=== PATIENT | male | born 1975 | race American Indian/Alaskan Native ===

== ENCOUNTER 2016-10-07 19:20 | Inpatient (IN) | payer SELFPAY ==
[2016-10-07 20:38] LABS: Basophils % (Auto) 0.3 % (0.0-1.8); Hematocrit 43.8 % (35.5-45.6); Hemoglobin 15.1 gm/dl (11.8-15.2); Mean Corpuscular HGB Conc 34 % (32-34); Mean Corpuscular Hemoglobin 30 pg (28-32); Mean Corpuscular Volume 87 fl (84-94); Platelet Count 231 K/mm3 (140-440); Red Blood Count 5.05 M/mm3 (3.65-5.03); Red Cell Distribution Width 12.5 % (13.2-15.2); White Blood Count 10.9 K/mm3 (4.5-11.0)
[2016-10-07 20:58] LABS: Alanine Aminotransferase 25 units/L (7-56); Albumin 4.9 g/dL (3.9-5); Albumin/Globulin Ratio 1.4 %; Alkaline Phosphatase 164 units/L (35-129); Anion Gap 18 mmol/L; Bilirubin,Total 0.2 mg/dL (0.1-1.2); Blood Urea Nitrogen 15 mg/dL (9-20); Calcium 9.6 mg/dL (8.4-10.2); Carbon Dioxide 27 mmol/L (22-30); Chloride 97.2 mmol/L (98-107); Glucose 104 mg/dL (75-100); Potassium 4.5 mmol/L (3.6-5.0); Sodium 138 mmol/L (137-145); Total Protein 8.3 g/dL (6.3-8.2)
[2016-10-07 21:12] LABS: Lipase 1041 units/L (13-60)
[2016-10-07 22:20] LABS: Bilirubin,Urine NEG (Negative); Blood,Urine NEG (Negative); Ketones,Urine NEG (Negative); Leukocyte Esterase,Urine NEG (Negative); Mucus,Urine FEW /HPF; Nitrite,Urine NEG (Negative); Protein,Urine <15 mg/dL mg/dL (Negative); Urobilinogen,Urine < 2.0 mg/dL (<2.0)
[2016-10-07] MEDS ORDERED: NACL 0.9% 1000 ML 1,000 ML IV ONE (23:40)
[2016-10-07] MEDS ORDERED: DILAUDID IV ONE (23:40)
[2016-10-07] MEDS ORDERED: PEPCID IV ONE (23:40)
[2016-10-07] MEDS ORDERED: ZOFRAN IV ONE (23:41)
--- NOTE | 2016-10-07 23:51 | Emergency Department Report ---
ED Abdominal Pain HPI - General Chief Complaint: Abdominal Pain Stated Complaint: ABD PAIN Time Seen by Provider: 10/07/16 23:19 Source: patient, old records reviewed Mode of arrival: Ambulatory Limitations: No Limitations - History of Present Illness Initial Comments: 41-year-old male with a past medical history of alcohol abuse and pancreatitis presents to the hospital complaining of upper abdominal pain that radiates to the back for the past 5 days. Pain is constant, rated 8/10 in intensity, worse palpation. No alleviating factors reported. Positive vomiting, nausea, and diarrhea reported. Patient states he has had pancreatitis in the past secondary to alcohol use. He admits to recent alcohol use over the last 5 days prior to symptom onset. No reports of fever. - Related Data Previous Rx's Medication Instructions Recorded Last Taken Type HYDROcodone/APAP 7.5-325 [[place] 1 each PO Q8HR PRN #10 tablet 05/15/16 Unknown Rx 7.5-325 mg TAB] Ibuprofen [Motrin] 800 mg PO Q8HR PRN #14 tablet 05/15/16 Unknown Rx Allergies Allergy/AdvReac Type Severity Reaction Status Date / Time No Known Allergies Allergy Verified 01/29/15 13:22 ED Review of Systems ROS: Stated complaint: ABD PAIN Other details as noted in HPI Comment: All other systems reviewed and negative Other: Constitutional: No fevers chills Eyes: No eye pain visual changes ENT: No ear pain or throat pain Neck: Denies pain Respiratory: Denies cough wheezing shortness of breath Cardiovascular: Denies chest pain, palpitations, syncope GI: As per HPI : Denies dysuria Musculoskeletal: Denies back pain, joint swelling Skin: Denies rash, lesions, erythema Neurologic: Denies headache, numbness, weakness Psychiatric: Denies suicidal ideation, hallucinations ED Past Medical Hx - Past Medical History Previous Medical History?: Yes Additional medical history: pancreatitis - Surgical History Past Surgical History?: No - Social History Smoking Status: Never Smoker Substance Use Type: None - Medications Home Medications: Home Medications Medication Instructions Recorded Confirmed Last Taken Type HYDROcodone/APAP 7.5-325 [[place] 1 each PO Q8HR PRN #10 tablet 05/15/16 Unknown Rx 7.5-325 mg TAB] Ibuprofen [Motrin] 800 mg PO Q8HR PRN #14 tablet 05/15/16 Unknown Rx ED Physical Exam - General Limitations: No Limitations - Other Other exam information: General: No limitations, patient is alert in no acute distress Head exam: Atraumatic, normocephalic Eyes exam: Normal appearance, pupils equal reactive to light, extraocular movements intact ENT: Moist mucous membrane, normal oropharynx Neck exam: Normal inspection, full range of motion, no meningismus nontender Respiratory exam: Clear to auscultation bilateral, no wheezes, rales, crackles Cardiovascular: Normal rate and rhythm, normal heart sounds Abdomen: Soft, nondistended, epigastric tenderness, with normal bowel sounds, no rebound, or guarding Extremity: Full range of motion normal inspection no deformity Back: Normal Inspection, full range of motion, no tenderness Neurologic: Alert, oriented x3, cranial nerves intact, no motor or sensory deficit Psychiatric: normal affect, normal mood Skin: Warm, dry, intact ED Course Vital Signs 10/07/16 19:58 Temperature 98.0 F Pulse Rate 72 Respiratory 20 Rate Blood Pressure 146/107 O2 Sat by Pulse 99 Oximetry - Reevaluation(s) Reevaluation #1: 10/07/16 23:50 Dilaudid, Zofran, Pepcid, and normal saline ordered 10/07/16 23:50 ED Medical Decision Making - Lab Data Result diagrams: 10/07/16 20:21 10/07/16 20:21 Lab Results 10/07/16 10/07/16 10/07/16 Range/Units 20:21 20:21 21:45 WBC 10.9 (4.5-11.0) K/mm3 RBC 5.05 H (3.65-5.03) M/mm3 Hgb 15.1 (11.8-15.2) gm/dl Hct 43.8 (35.5-45.6) % MCV 87 (84-94) fl MCH 30 (28-32) pg MCHC 34 (32-34) % RDW 12.5 L (13.2-15.2) % Plt Count 231 (140-440) K/mm3 Lymph % (Auto) 31.5 (13.4-35.0) % [place] % (Auto) 6.4 (0.0-7.3) % Eos % (Auto) 2.0 (0.0-4.3) % Baso % (Auto) 0.3 (0.0-1.8) % Lymph # 3.4 (1.2-5.4) K/mm3 [place] # 0.7 (0.0-0.8) K/mm3 Eos # 0.2 (0.0-0.4) K/mm3 Baso # 0.0 (0.0-0.1) K/mm3 Seg Neutrophils % 59.8 (40.0-70.0) % Seg Neutrophils # 6.5 (1.8-7.7) K/mm3 Sodium 138 (137-145) mmol/L Potassium 4.5 (3.6-5.0) mmol/L Chloride 97.2 L (98-107) mmol/L Carbon Dioxide 27 (22-30) mmol/L Anion Gap 18 mmol/L BUN 15 (9-20) mg/dL Creatinine 1.0 (0.8-1.5) mg/dL Estimated GFR > 60 ml/min BUN/Creatinine Ratio 15.00 % Glucose 104 H (75-100) mg/dL Calcium 9.6 (8.4-10.2) mg/dL Total Bilirubin 0.2 (0.1-1.2) mg/dL AST 26 (5-40) units/L ALT 25 (7-56) units/L Alkaline Phosphatase 164 H (35-129) units/L Total Protein 8.3 H (6.3-8.2) g/dL Albumin 4.9 (3.9-5) g/dL Albumin/Globulin Ratio 1.4 % Lipase 1041 H (13-60) units/L Urine Color Yellow (Yellow) Urine Turbidity Clear (Clear) Urine pH 5.0 (5.0-7.0) Ur Specific [place] 1.016 (1.003-1.030) Urine Protein <15 mg/dl (Negative) mg/dL Urine Glucose (UA) Neg (Negative) mg/dL Urine Ketones Neg (Negative) mg/dL Urine Blood Neg (Negative) Urine Nitrite Neg (Negative) Urine Bilirubin Neg (Negative) Urine Urobilinogen < 2.0 (<2.0) mg/dL Ur Leukocyte Esterase Neg (Negative) Urine WBC (Auto) 2.0 (0.0-6.0) /HPF Urine RBC (Auto) 1.0 (0.0-6.0) /HPF U Epithel Cells (Auto) < 1.0 (0-13.0) /HPF Urine Mucus Few /HPF - Medical Decision Making Plans to admit patient to the hospital for treatment of acute pancreatitis likely alcohol induced. - Differential Diagnosis pancreatitis, biliary colic, hepatitis, gastritis Critical Care Time: No Critical care attestation.: If time is entered above; I have spent that time in minutes in the direct care of this critically ill patient, excluding procedure time. ED Disposition Clinical Impression: Pancreatitis, alcoholic, acute Disposition: OP ADMITTED IP TO THIS HOSP Is pt being admited?: Yes Condition: Stable Time of Disposition: 23:53 (Dr marcelino/hosp)
[2016-10-08] MEDS ORDERED: TYLENOL PO PRN (05:40)
[2016-10-08] MEDS ORDERED: ZOFRAN IV PRN (05:40)
[2016-10-08] MEDS ORDERED: DULCOLAX PR PRN (05:40)
[2016-10-08] MEDS ORDERED: MILK OF MAGNESIA PO PRN (05:40)
--- NOTE | 2016-10-08 05:53 | Event Note ---
Date: 10/07/16 See H/p in reports Acute pancreatitis Etoh dependence
[2016-10-08] MEDS ORDERED: ATIVAN IV PRN ×3 (05:59)
[2016-10-08] MEDS ORDERED: HALDOL IV PRN ×2 (05:59)
[2016-10-08] MEDS: DILAUDID IV PRN ×4 (06:05→22:25)
[2016-10-08] MEDS: D5NS 1,000 ML IV SCH ×2 (06:05→17:09)
--- NOTE | 2016-10-08 07:29 | History and Physical Report ---
CHIEF COMPLAINT: Severe epigastric pain of 5 days duration. HISTORY OF PRESENT ILLNESS: A 41-year-old -[place] male comes in for severe abdominal pain of 5 days duration, moreso over the last of 36 hours. Pain is about 10 on a scale of 1-10. Associated with nausea and vomiting. Vomited about three to four times. Also, he states he has diarrhea. He is not able to elaborate on that. 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 Apparently took three views prior to this episode of epigastric pain. No fever, no chills. Unable to tolerate any food. CURRENT MEDICATIONS: None. PAST MEDICAL HISTORY: He has history of pain, which is 10 on a scale of 10, very sharp. Localized epigastric region radiating to the back. Significant for pancreatitis. PAST SURGICAL HISTORY: None. SOCIAL HISTORY: Alcohol on a regular basis for 3-6 years. Does not smoke. No drugs. HOME MEDICATIONS: [place] 7.5 q.8 p.r.n. #10 tablets and ibuprofen 800 mg q.8 p.r.n. #14 tablets given on 05/15/2016. Not on any medication at this point. REVIEW OF SYSTEMS: CONSTITUTIONAL: No fever, no weight loss, no weight gain. HEENT: No sore throat, no postnasal drip. NECK: No neck stiffness or neck pain. RESPIRATORY: No wheezing, no cough, no shortness of breath. CARDIOVASCULAR: No chest pain, no diaphoresis, no palpitations. GASTROINTESTINAL: As mentioned in the history of present illness. Severe epigastric pain associated with nausea, vomiting, and diarrhea. Vomiting about 3-4 times a day. MUSCULOSKELETAL: No joint pains, no muscle pains. CENTRAL NERVOUS SYSTEM: No syncope, no seizures. SKIN: No rashes. PSYCHIATRIC: No depression. No suicidal or homicidal tendencies. A 14-point review of systems done, otherwise negative. FAMILY HISTORY: Significant for no hypertension, no diabetes. PHYSICAL EXAMINATION: GENERAL: On examination, young male in the distress secondary to abdominal pain. VITAL SIGNS: Blood pressure is 146/107, temperature is 98.0, pulse is 72, respirations are 20, sats are 99%. HEENT: Unremarkable. Pupils equal and reactive. NECK: Supple, no lymphadenopathy, no thyromegaly. LUNGS: Clear to auscultation and percussion. Good air entry. CARDIOVASCULAR: S1, S2 heard. No gallop, no murmur, no rub. Apical impulse in the left fifth intercostal space and midclavicular line. ABDOMEN: Tenderness present in the epigastric region. Guarding present. No rigidity. Bowel sounds are normal. Hernial orifices are normal. EXTREMITIES: Good pedal pulses. No pedal edema. CENTRAL NERVOUS SYSTEM: Alert and oriented x4, nonfocal exam. SKIN: Normal. LABORATORY DATA: White count is 10,900, H and H is 15.1 and 43.8, platelet count is 231,000. Sodium 138, potassium is 4.5, chloride is 97.2, bicarbonate is 27, BUN and creatinine is 15 and 1.0. Glucose is 104, calcium 9.6, AST, ALT 26 and 25, alkaline phosphatase is 154, total protein is 8.3. Lipase is 1041. Amylase is not available. Urine negative. CAT scan of the abdomen was not done. ASSESSMENT AND PLAN: 1. Acute pancreatitis based on severe epigastric pain, nausea, vomiting, and also lipase is around 1000. We will get amylase and CT abdomen and pelvis with noncontrast. IV Dilaudid 2 mg q.3 p.r.n. and IV Zofran 4 mg q.3 p.r.n. Keep the patient n.p.o., IV D5 normal saline at 100 mL per hour. 2. Ethyl alcohol dependency, CIWA protocol initiated. 3. Deep venous thrombosis prophylaxis, Lovenox 40 mg subcutaneous daily. JOB# [id number] VSM/NTS
[2016-10-08 08:16] LABS: Amylase 200 units/L (27-131)
[2016-10-08 08:44] LABS: Lipase 509 units/L (13-60)
[2016-10-08] MEDS ORDERED: LOVENOX SUB-Q SCH ×2 (10:00→22:00)
[2016-10-08 10:22] LABS: Albumin 4.3 g/dL (3.9-5); Phosphorous 3.9 mg/dL (2.5-4.5)
[2016-10-08 10:23] LABS: Alanine Aminotransferase 20 units/L (7-56); Albumin 4.4 g/dL (3.9-5); Albumin/Globulin Ratio 1.5 %; Alkaline Phosphatase 145 units/L (35-129); Anion Gap 19 mmol/L; Bilirubin,Total 0.6 mg/dL (0.1-1.2); Blood Urea Nitrogen 10 mg/dL (9-20); Calcium 9.1 mg/dL (8.4-10.2); Carbon Dioxide 23 mmol/L (22-30); Glucose 125 mg/dL (75-100); Potassium 3.9 mmol/L (3.6-5.0); Sodium 141 mmol/L (137-145); Total Protein 7.4 g/dL (6.3-8.2)
[2016-10-08] MEDS ORDERED: NACL ONE (10:30)
[2016-10-08] MEDS: PEPCID IV SCH ×2 (11:13→22:25)
--- NOTE | 2016-10-08 12:46 | Cat Scan Report ---
CT scan of abdomen and pelvis with IV contrast: Compared to 01/11/16. History: Pancreatitis. Findings: Normal lung bases. No pleural pericardial effusion. Normal liver, spleen and gallbladder. There is multiple calcifications noted throughout the pancreas including the head. Largest is seen at the head. Dilated pancreatic duct without significant change. Minimal stranding near the tail of the pancreas. Normal adrenals kidneys and bladder. No free intraperitoneal fluid or air. No evidence of adenopathy. Normal aorta. Grossly bowel gas pattern appears normal there is minimal blood in stool in colon. Small umbilical hernia containing fat. Impression: Chronic stable pancreatitis. Minimal stranding near the tail of the pancreas may represent associated acute pancreatitis.
--- NOTE | 2016-10-09 00:25 | Admit Criteria Form ---
Admission Criteria Documentation: PANCREATITIS Clinical Indications for Admission to Inpatient Care (Place 'X' for any and all applicable criteria): Admission is indicated for ANY ONE of the following (1)(2)(3)(4): [ X]I. Acute pancreatitis[A] as indicated by 2 or more of the following: [ X]a) Abdominal pain (eg, epigastric, left upper quadrant) [ X]b) Serum amylase or serum lipase greater than 3 times the upper limit of normal [ ]c) Characteristic findings from abdominal imaging (eg, pancreatic inflammation, pancreatic necrosis, peripancreatic fluid collection)[B] [ ]II. Pancreatitis (acute or chronic) requiring inpatient care as indicated by 1 or more of the following: [ ]a) Inability to maintain oral hydration Hypoxemia [ ]b) Evidence of infection (eg, fever, peripancreatic abscess) [ ]c) Severe pain requiring acute inpatient management [ ]d) Hemodynamic instability [ ]e) Hypoxemia [ ]f) Acute renal failure [ ]g) Severe electrolyte abnormalities Extended stay beyond goal length of stay may be needed for (1)(11) [ ]a) Severe acute pancreatitis (10)(19) [ ]b) Persistent symptoms, ascites, or pleural effusion [ ]c) Abdominal compartment syndrome (10) [ ]d) Late complications [ ]e) Acute renal failure (27) [ ]f) Gallstones in gallbladder The original [employer] content created by [employer] has been revised. The portions of the content which have been revised are identified through the use of italic text or in bold,and [facility] has neither reviewed nor approved the modified material.All other unmodified content is copyright [employer]. Please see references footnoted in the original [employer] edition 2016 Admission Criteria Met: Yes
[2016-10-09] MEDS: BENADRYL PO PRN ×2 (01:10→11:45)
[2016-10-09] MEDS: DILAUDID IV PRN ×2 (06:40→11:44)
[2016-10-09] MEDS: D5NS 1,000 ML IV SCH (06:48)
[2016-10-09 07:19] LABS: Basophils % (Auto) 0.3 % (0.0-1.8); Hemoglobin 13.7 gm/dl (11.8-15.2); Mean Corpuscular HGB Conc 34 % (32-34); Mean Corpuscular Hemoglobin 31 pg (28-32); Mean Corpuscular Volume 89 fl (84-94); Platelet Count 218 K/mm3 (140-440); Red Blood Count 4.51 M/mm3 (3.65-5.03); Red Cell Distribution Width 12.8 % (13.2-15.2); White Blood Count 9.5 K/mm3 (4.5-11.0)
[2016-10-09 08:02] LABS: Alanine Aminotransferase 16 units/L (7-56); Albumin 4.2 g/dL (3.9-5); Albumin/Globulin Ratio 1.4 %; Alkaline Phosphatase 122 units/L (35-129); Anion Gap 18 mmol/L; BUN/Creatinine Ratio 6.36; Bilirubin,Total 0.8 mg/dL (0.1-1.2); Blood Urea Nitrogen 7 mg/dL (9-20); Calcium 9.1 mg/dL (8.4-10.2); Carbon Dioxide 25 mmol/L (22-30); Chloride 101.5 mmol/L (98-107); Glucose 92 mg/dL (75-100); Potassium 3.7 mmol/L (3.6-5.0); Sodium 141 mmol/L (137-145); Total Protein 7.3 g/dL (6.3-8.2)
[2016-10-09] MEDS: PEPCID IV SCH ×2 (08:11→12:04)
[2016-10-09 09:20] VITALS: BP 116/78
--- NOTE | 2016-10-09 14:13 | Discharge Summary ---
Providers - Providers Date of Admission: 10/07/16 23:54 Attending physician: EVANS WILKES Primary care physician: RINKU ENAMORADO MD Hospitalization Condition: Stable Exam - Constitutional Vitals: Temp Pulse Resp BP Pulse Ox 98.1 F 76 18 116/78 98 10/09/16 08:00 10/09/16 08:00 10/09/16 08:00 10/09/16 08:00 10/09/16 08:00 Plan Follow up with: RINKU ENAMORADO MD [Primary Care Provider] - 7 Days
== END 2016-10-09 16:20 | disposition home or self-care (01) | DRG 440 ==
LOC: ED 19:20 → 3A 23:54
PROVIDERS: ADMIT Internal Medicine; ATTEND Internal Medicine
DX: K85.20 Alcohol induced acute pancreatitis without necrosis or infection (principal); F10.20 Alcohol dependence, uncomplicated; Y90.9 Presence of alcohol in blood, level not specified
CPT/HCPCS: 36415; 74160; 80053; 81001; 82040; 82150; 83690; 83735; 84100; 85025; 96361; 96374; 96375; J1170; J1650; J2060; J2405; J7030; J7042; Q9967

== ENCOUNTER 2017-01-01 05:51 | Emergency (ER) | payer OTHER ==
[2017-01-01 06:36] LABS: Basophils % (Auto) 0.4 % (0.0-1.8); Hematocrit 40.4 % (35.5-45.6); Hemoglobin 13.7 gm/dl (11.8-15.2); Mean Corpuscular HGB Conc 34 % (32-34); Mean Corpuscular Hemoglobin 30 pg (28-32); Mean Corpuscular Volume 87 fl (84-94); Platelet Count 250 K/mm3 (140-440); Red Blood Count 4.65 M/mm3 (3.65-5.03); Red Cell Distribution Width 12.9 % (13.2-15.2); White Blood Count 6.7 K/mm3 (4.5-11.0)
[2017-01-01 06:46] LABS: INR 0.97 (0.87-1.13)
[2017-01-01 06:47] LABS: Partial Thromboplastin Time 25.4 Sec. (24.2-36.6)
[2017-01-01 06:57] LABS: Alanine Aminotransferase 20 units/L (7-56); Albumin 4.5 g/dL (3.9-5); Albumin/Globulin Ratio 1.5 %; Alkaline Phosphatase 154 units/L (35-129); Anion Gap 19 mmol/L; Blood Urea Nitrogen 11 mg/dL (9-20); Calcium 9.5 mg/dL (8.4-10.2); Carbon Dioxide 22 mmol/L (22-30); Chloride 105.5 mmol/L (98-107); Glucose 93 mg/dL (75-100); Lipase 19 units/L (13-60); Potassium 3.5 mmol/L (3.6-5.0); Sodium 143 mmol/L (137-145); Total Protein 7.5 g/dL (6.3-8.2)
[2017-01-01 07:40] LABS: Bilirubin,Urine NEG (Negative); Blood,Urine NEG (Negative); Ketones,Urine NEG (Negative); Leukocyte Esterase,Urine TR (Negative); Mucus,Urine FEW /HPF; Nitrite,Urine NEG (Negative); Protein,Urine <15 mg/dL mg/dL (Negative); Urobilinogen,Urine < 2.0 mg/dL (<2.0)
[2017-01-01] MEDS ORDERED: ZOFRAN IV ONE (13:16)
[2017-01-01] MEDS ORDERED: MORPHINE IV ONE (13:16)
[2017-01-01] MEDS ORDERED: NACL 0.9% 1000 ML 1,000 ML IV ONE (13:17)
--- NOTE | 2017-01-01 15:02 | Emergency Department Report ---
HPI - General Chief Complaint: Abdominal Pain Time Seen by Provider: 01/01/17 12:38 - HPI HPI: The patient is a 41-year-old male presents for evaluation of abdominal pain. The patient reports epigastric abdominal pain, for the past 24 hours, not/10 in severity, sharp in quality, exacerbated with eating. The patient denies fever, force or vomiting, chest pain, dyspnea, diarrhea, blood in the stool, dark tarry stool, dysuria, hematuria, flank pain, genital discharge, inability to pass flatus. ED Past Medical Hx - Past Medical History Previous Medical History?: Yes Hx Hypertension: No Hx Congestive Heart Failure: No Hx Diabetes: No Hx Arthritis: Yes (Grand mother) Hx Asthma: No Hx COPD: No Additional medical history: pancreatitis - Surgical History Past Surgical History?: No - Social History Smoking Status: Never Smoker Substance Use Type: None - Medications Home Medications: Home Medications Medication Instructions Recorded Confirmed Last Taken Type Ibuprofen [Motrin] 800 mg PO Q8HR PRN #14 tablet 05/15/16 10/08/16 Unknown Rx Folic Acid [Folvite] 1 mg PO QDAY #30 tablet 10/09/16 Unknown Rx Multivitamin Tab [Multiple Vitamin 1 each PO QDAY #30 tablet 10/09/16 Unknown Rx TAB (Theragran)] Thiamine [Vitamin B-1] 100 mg PO QDAY #30 tablet 10/09/16 Unknown Rx Ondansetron [Zofran TAB] 4 mg PO Q8HR PRN #15 tablet 01/01/17 Unknown Rx ED Review of Systems ROS: Stated complaint: UPPER ABD PAIN/LIGHT HEADED Other details as noted in HPI Constitutional: denies: fever ENT: denies: throat or neck pain Respiratory: denies: cough, shortness of breath Cardiovascular: denies: chest pain Endocrine: denies unexplained weight loss or gain Gastrointestinal: reports abdominal pain, nausea Genitourinary: denies: dysuria Musculoskeletal: denies: leg swelling Skin: denies: rash Neurological: denies: headache Hematological/Lymphatic: denies: easy bleeding or easy bruising Psych: denies sadness or hopelessness Physical Exam - Physical Exam Vital Signs: Vital Signs 01/01/17 01/01/17 01/01/17 05:59 11:49 11:50 Temperature 97.9 F Pulse Rate 87 Respiratory 18 Rate Blood Pressure 134/90 Blood Pressure 139/105 [Right] O2 Sat by Pulse 97 99 99 Oximetry 01/01/17 01/01/17 01/01/17 12:00 12:31 13:01 Temperature Pulse Rate Respiratory Rate Blood Pressure 140/91 140/91 140/91 Blood Pressure [Right] O2 Sat by Pulse 99 98 99 Oximetry 01/01/17 01/01/17 13:07 13:40 Temperature Pulse Rate Respiratory 18 18 Rate Blood Pressure Blood Pressure [Right] O2 Sat by Pulse 99 Oximetry Physical Exam: General: well-nourished, well-developed, no acute distress Head: Normocephalic, atraumatic Eyes: normal sclera ENT: Mucous membranes are pale and dry Neck: No neck stiffness, no cervical adenopathy Respiratory: Breath sounds equal bilaterally, no wheezing, rales, or rhonchi Cardio: S1 and S2 present, no murmurs, rubs, gallops, capillary refill is delayed Abdomen: Normoactive bowel sounds, soft abdomen, epigastric tenderness to palpation present, no rigidity, no guarding or rebound tenderness Musc: No pitting edema Skin: No rash Neuro: no facial drooping, normal speech Psych: Normal affect ED Course Vital Signs 01/01/17 01/01/17 01/01/17 05:59 11:49 11:50 Temperature 97.9 F Pulse Rate 87 Respiratory 18 Rate Blood Pressure 134/90 Blood Pressure 139/105 [Right] O2 Sat by Pulse 97 99 99 Oximetry 01/01/17 01/01/17 01/01/17 12:00 12:31 13:01 Temperature Pulse Rate Respiratory Rate Blood Pressure 140/91 140/91 140/91 Blood Pressure [Right] O2 Sat by Pulse 99 98 99 Oximetry 01/01/17 01/01/17 13:07 13:40 Temperature Pulse Rate Respiratory 18 18 Rate Blood Pressure Blood Pressure [Right] O2 Sat by Pulse 99 Oximetry ED Medical Decision Making - Lab Data Result diagrams: 01/01/17 06:18 01/01/17 06:18 - Medical Decision Making The patient was seen and examined by myself. The patient is placed on a conveyor monitor and continuous pulse ox. On initial evaluation, the patient was found to be in no distress. Evaluation orders are placed. IV access is established and the patient is given 1 L normal saline fluid bolus for txt of dehydration, and Zofran for nausea, and IV morphine for pain. Lab results were non-concerning including WBC, hemoglobin, hematocrit, electrolytes, renal function, LFTs, lipase, and urinalysis. The patient was reevaluated and reported that their symptoms were markedly improved. The patient is stable for discharge with outpatient follow-up. The patient is given follow-up and return instructions. The patient expressed understanding and agreed with the plan. The patient is discharged in stable condition. Critical care attestation.: If time is entered above; I have spent that time in minutes in the direct care of this critically ill patient, excluding procedure time. ED Disposition Clinical Impression: Dehydration, Abdominal pain, acute, epigastric Disposition: DISCHARGED TO HOME OR SELFCARE Is pt being admited?: No Does the pt Need Aspirin: No Condition: Stable Instructions: Dehydration (ED), Acute Abdominal Pain (ED), Peptic Ulcer (ED), Gastritis (ED), Pancreatitis (ED) Prescriptions: Ondansetron [Zofran TAB] 4 mg PO Q8HR PRN #15 tablet PRN Reason: Nausea Referrals: PRIMARY CARE, [Primary Care Provider] - 3-5 Days Time of Disposition: 14:58
[2017-01-01 15:20] VITALS: BP 142/81
== END 2017-01-01 15:51 | disposition home or self-care (01) ==
LOC: ED 05:51
DX: E86.0 Dehydration (principal); R10.13 Epigastric pain; M19.90 Unspecified osteoarthritis, unspecified site; K85.90 Acute pancreatitis without necrosis or infection, unspecified
CPT/HCPCS: 36415; 80053; 81001; 83690; 84484; 85025; 85610; 85730; 93005; 93010; 96361; 96374; 96375; 99284; J2270; J2405; J7030

== ENCOUNTER 2017-11-14 09:19 | Emergency (ER) | payer SELFPAY ==
[2017-11-14 09:29] VITALS: BP 134/96
[2017-11-14 09:51] LABS: Basophils % (Auto) 0.4 % (0.0-1.8); Eosinophils # (Auto) 0.3 K/mm3 (0.0-0.4); Eosinophils % (Auto) 3.5 % (0.0-4.3); Hemoglobin 14.9 gm/dl (11.8-15.2); Lymphocytes # (Auto) 3.8 K/mm3 (1.2-5.4); Mean Corpuscular HGB Conc 35 % (32-34); Mean Corpuscular Hemoglobin 31 pg (28-32); Mean Corpuscular Volume 89 fl (84-94); Monocytes # (Auto) 0.6 K/mm3 (0.0-0.8); Monocytes % (Auto) 7.7 % (0.0-7.3); Platelet Count 258 K/mm3 (140-440); Red Blood Count 4.83 M/mm3 (3.65-5.03); Red Cell Distribution Width 13.3 % (13.2-15.2)
[2017-11-14 10:05] LABS: Alanine Aminotransferase 17 units/L (7-56); Albumin 4.8 g/dL (3.9-5); BUN/Creatinine Ratio 11; Blood Urea Nitrogen 12 mg/dL (9-20); Calcium 9.7 mg/dL (8.4-10.2); Hemolysis Index 17
[2017-11-14 10:17] LABS: Bilirubin,Direct < 0.2 mg/dL (0-0.2)
[2017-11-14 10:41] LABS: Bilirubin,Urine NEG (Negative); Blood,Urine NEG (Negative); Color,Urine Yellow (Yellow); Mucus,Urine FEW /HPF; Protein,Urine <15 mg/dL mg/dL (Negative); Urobilinogen,Urine < 2.0 mg/dL (<2.0)
--- NOTE | 2017-11-14 13:10 | Emergency Department Report ---
ED Abdominal Pain HPI - General Chief Complaint: Abdominal Pain Stated Complaint: CANT URINATE Time Seen by Provider: 11/14/17 12:50 Source: patient Mode of arrival: Ambulatory Limitations: No Limitations - History of Present Illness Initial Comments: Patient is here for abdominal pain that has been hurting for 4 days/ He reported that he vomited twice yesterday. He reports that he has urinary urgency and will take up to 30 mins to void. He denies any hematuria, fever, any dysuria. No past medical, no current meds and no know drug allergies. MD Complaint: abdominal pain -: month(s) (1) Location: suprapubic - Related Data Previous Rx's Medication Instructions Recorded Last Taken Type Ibuprofen [Motrin] 800 mg PO Q8HR PRN #14 tablet 05/15/16 Unknown Rx Folic Acid [Folvite] 1 mg PO QDAY #30 tablet 10/09/16 Unknown Rx Multivitamin Tab [Multiple Vitamin 1 each PO QDAY #30 tablet 10/09/16 Unknown Rx TAB (Theragran)] Thiamine [Vitamin B-1] 100 mg PO QDAY #30 tablet 10/09/16 Unknown Rx Ondansetron [Zofran TAB] 4 mg PO Q8HR PRN #15 tablet 01/01/17 Unknown Rx Tamsulosin [Flomax] 0.4 mg PO QDAY #30 cap 11/14/17 Unknown Rx traMADol [Ultram 50 MG tab] 50 mg PO Q6HR PRN #20 tablet 11/14/17 Unknown Rx Allergies Allergy/AdvReac Type Severity Reaction Status Date / Time No Known Allergies Allergy Verified 01/29/15 13:22 ED Review of Systems ROS: Stated complaint: CANT URINATE Other details as noted in HPI Constitutional: denies: chills, fever Eyes: denies: eye pain, eye discharge, vision change ENT: denies: ear pain, throat pain Respiratory: denies: cough, shortness of breath, wheezing Cardiovascular: denies: chest pain, palpitations Endocrine: no symptoms reported Gastrointestinal: abdominal pain. denies: nausea, diarrhea Genitourinary: urgency. denies: dysuria Musculoskeletal: denies: back pain, joint swelling, arthralgia Skin: denies: rash, lesions Neurological: denies: headache, weakness, paresthesias Psychiatric: denies: anxiety, depression Hematological/Lymphatic: denies: easy bleeding, easy bruising ED Past Medical Hx - Past Medical History Hx Hypertension: No Hx Congestive Heart Failure: No Hx Diabetes: No Hx Arthritis: Yes (Grand mother) Hx Asthma: No Hx COPD: No Additional medical history: pancreatitis - Social History Smoking Status: Never Smoker Substance Use Type: None - Medications Home Medications: Home Medications Medication Instructions Recorded Confirmed Last Taken Type Ibuprofen [Motrin] 800 mg PO Q8HR PRN #14 tablet 05/15/16 10/08/16 Unknown Rx Folic Acid [Folvite] 1 mg PO QDAY #30 tablet 10/09/16 Unknown Rx Multivitamin Tab [Multiple Vitamin 1 each PO QDAY #30 tablet 10/09/16 Unknown Rx TAB (Theragran)] Thiamine [Vitamin B-1] 100 mg PO QDAY #30 tablet 10/09/16 Unknown Rx Ondansetron [Zofran TAB] 4 mg PO Q8HR PRN #15 tablet 01/01/17 Unknown Rx Tamsulosin [Flomax] 0.4 mg PO QDAY #30 cap 11/14/17 Unknown Rx traMADol [Ultram 50 MG tab] 50 mg PO Q6HR PRN #20 tablet 11/14/17 Unknown Rx ED Physical Exam - General Limitations: No Limitations General appearance: alert, in no apparent distress - Head Head exam: Present: atraumatic, normocephalic - Eye Eye exam: Present: normal appearance - ENT ENT exam: Present: mucous membranes moist - Neck Neck exam: Present: normal inspection - Respiratory Respiratory exam: Present: normal lung sounds bilaterally. Absent: respiratory distress - Cardiovascular Cardiovascular Exam: Present: regular rate, normal rhythm. Absent: systolic murmur, diastolic murmur, rubs, gallop - GI/Abdominal GI/Abdominal exam: Present: soft, tenderness ( suprapubic), normal bowel sounds - Rectal Rectal exam: Present: deferred - Extremities Exam Extremities exam: Present: normal inspection - Back Exam Back exam: Present: normal inspection - Neurological Exam Neurological exam: Present: alert, oriented X3 - Psychiatric Psychiatric exam: Present: normal affect, normal mood - Skin Skin exam: Present: warm, dry, intact, normal color. Absent: rash ED Course Vital Signs 11/14/17 09:25 Temperature 98.0 F Pulse Rate 89 Respiratory 16 Rate Blood Pressure 134/96 O2 Sat by Pulse 99 Oximetry ED Medical Decision Making - Lab Data Result diagrams: 11/14/17 09:36 11/14/17 09:36 - Medical Decision Making Patient has been evaluated by this provider and Dr. Duagherty. Discuss with patient that his urine is normal and no elevation of his WBCs in his blood. recommend Flomax and tramadol and referral to urology. Critical care attestation.: If time is entered above; I have spent that time in minutes in the direct care of this critically ill patient, excluding procedure time. ED Disposition Clinical Impression: Abdominal pain in male Disposition: DC-01 TO HOME OR SELFCARE Is pt being admited?: No Does the pt Need Aspirin: No Condition: Stable Instructions: Abdominal Pain (ED) Additional Instructions: Take medication as prescribed. Follow up with a urologist and PCP. Prescriptions: Tamsulosin [Flomax] 0.4 mg PO QDAY #30 cap traMADol [Ultram 50 MG tab] 50 mg PO Q6HR PRN #20 tablet PRN Reason: Pain Referrals: PRIMARY CARE, [Primary Care Provider] - 3-5 Days GRZEGORZ UNGER MD [Staff Physician] - 3-5 Days JACKELIN RADFORD MD [Referring] - 3-5 Days SANTA SEPULVEDA MD [Referring] - 3-5 Days Forms: Work/School Release Form(ED)
--- NOTE | 2017-11-14 14:13 | Emergency Department Report ---
Chief Complaint: Abdominal Pain Stated Complaint: CANT URINATE Time Seen by Provider: 11/14/17 12:50 - HPI History of Present Illness: The patient is a 42-year-old male who presents for evaluation of abdominal pain. The patient reports upper abdominal pain and suprapubic abdominal pain for the past 2 months, associated with intermittent dysuria and difficulty urinating. The patient denies fever, chills, night sweats, diarrhea, blood in the stool, dark tarry stool, hematuria, testicular pain or swelling, flank pain , genital discharge, rectal pain, inability to defecate. - Exam Vital Signs: Vital Signs 11/14/17 09:25 Temperature 98.0 F Pulse Rate 89 Respiratory 16 Rate Blood Pressure 134/96 O2 Sat by Pulse 99 Oximetry MSE screening note: Focused history and physical exam performed. Due to findings the following was ordered: ED Medical Decision Making - Lab Data Result diagrams: 11/14/17 09:36 11/14/17 09:36 ED Disposition for MSE Clinical Impression: Abdominal pain in male Disposition: DC-01 TO HOME OR SELFCARE Condition: Stable Instructions: Abdominal Pain (ED) Additional Instructions: Take medication as prescribed. Follow up with a urologist and PCP. Prescriptions: Tamsulosin [Flomax] 0.4 mg PO QDAY #30 cap traMADol [Ultram 50 MG tab] 50 mg PO Q6HR PRN #20 tablet PRN Reason: Pain Referrals: GRZEGORZ UNGER MD [Staff Physician] - 3-5 Days [facility], [Primary Care Provider] - 3-5 Days SANTA SEPULVEDA MD [Referring] - 3-5 Days JACKELIN RADFORD MD [Referring] - 3-5 Days Forms: Work/School Release Form(ED)
== END 2017-11-14 13:25 | disposition home or self-care (01) ==
LOC: ED 09:19
DX: R10.30 Lower abdominal pain, unspecified (principal); R39.15 Urgency of urination; R11.10 Vomiting, unspecified
CPT/HCPCS: 36415; 80053; 80074; 81001; 85025; 99283

== ENCOUNTER 2018-02-18 22:23 | Emergency (ER) | payer SELFPAY ==
[2018-02-18 22:46] VITALS: BP 147/103
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
[2018-02-19] MEDS ORDERED: TORADOL IM ONE (00:52)
== END 2018-02-19 01:10 | disposition home or self-care (01) ==
LOC: ED 22:23
DX: M43.6 Torticollis (principal); M54.9 Dorsalgia, unspecified; M19.90 Unspecified osteoarthritis, unspecified site; W22.8XXA Striking against or struck by other objects, initial encounter; Y93.89 Activity, other specified; Y99.8 Other external cause status; Y92.89 Other specified places as the place of occurrence of the external cause
CPT/HCPCS: 96372; 99282; J1885

== ENCOUNTER 2018-06-25 12:03 | Emergency (ER) | payer SELFPAY ==
[2018-06-25] MEDS ORDERED: LIDOCAINE VISCOUS 2% PO ONE (13:38)
[2018-06-25] MEDS ORDERED: PEPCID PO ONE (13:38)
[2018-06-25] MEDS ORDERED: ZOFRAN ODT PO ONE (13:38)
[2018-06-25] MEDS ORDERED: ALUM-MAG HYDROX-SIMETH 200-200-20MG/5ML PO ONE (13:38)
--- NOTE | 2018-06-25 13:38 | Emergency Department Report ---
ED Abdominal Pain HPI - General Chief Complaint: Abdominal Pain Stated Complaint: N/V,SIDE PAIN Time Seen by Provider: 06/25/18 13:37 Source: patient Mode of arrival: Ambulatory Limitations: No Limitations - History of Present Illness MD Complaint: abdominal pain -: Gradual, days(s) Location: diffuse, LUQ Migration to: no migration Severity: mild Quality: cramping Consistency: constant Improves With: nothing Worsens With: nothing Associated Symptoms: denies other symptoms. denies: nausea, vomiting, diarrhea , fever, chills, constipation, dysuria, hematemesis, hematochezia, melena, hematuria, anorexia, syncope - Related Data Previous Rx's Medication Instructions Recorded Last Taken Type Famotidine [Pepcid] 20 mg PO BID #20 tablet 06/25/18 Unknown Rx Ondansetron [Zofran Odt] 4 mg PO Q6H PRN #10 tab.rapdis 06/25/18 Unknown Rx Allergies Allergy/AdvReac Type Severity Reaction Status Date / Time No Known Allergies Allergy Verified 06/25/18 12:19 ED Review of Systems ROS: Stated complaint: N/V,SIDE PAIN Other details as noted in HPI Comment: All other systems reviewed and negative Constitutional: denies: chills, fever Eyes: denies: eye pain ENT: denies: throat pain Respiratory: denies: cough Cardiovascular: denies: palpitations Endocrine: denies: excessive sweating Gastrointestinal: abdominal pain, nausea. denies: vomiting, diarrhea, constipation, hematemesis, melena Genitourinary: denies: urgency, dysuria Musculoskeletal: denies: back pain Skin: denies: rash, lesions Neurological: denies: headache, weakness Psychiatric: denies: anxiety, depression Hematological/Lymphatic: denies: easy bleeding ED Past Medical Hx - Past Medical History Hx Hypertension: No Hx Congestive Heart Failure: No Hx Diabetes: No Hx Arthritis: Yes (Grand mother) Hx Asthma: No Hx COPD: No Additional medical history: pancreatitis - Surgical History Past Surgical History?: No - Family History Family history: no significant - Social History Smoking Status: Never Smoker Substance Use Type: Alcohol - Medications Home Medications: Home Medications Medication Instructions Recorded Confirmed Last Taken Type Famotidine [Pepcid] 20 mg PO BID #20 tablet 06/25/18 Unknown Rx Ondansetron [Zofran Odt] 4 mg PO Q6H PRN #10 tab.rapdis 06/25/18 Unknown Rx ED Physical Exam - General Limitations: No Limitations General appearance: alert - Head Head exam: Present: atraumatic - Eye Eye exam: Present: normal appearance Pupils: Present: normal accommodation - ENT ENT exam: Present: normal exam, mucous membranes moist - Neck Neck exam: Present: normal inspection - Respiratory Respiratory exam: Present: normal lung sounds bilaterally - Cardiovascular Cardiovascular Exam: Present: regular rate - GI/Abdominal GI/Abdominal exam: Present: soft, normal bowel sounds. Absent: distended, tenderness, guarding, rebound, rigid, diminished bowel sounds, hyperactive bowel sounds, hypoactive bowel sounds, organomegaly, mass, bruit, pulsatile mass , hernia - Rectal Rectal exam: Present: deferred - Extremities Exam Extremities exam: Present: normal inspection - Back Exam Back exam: Present: normal inspection, full ROM. Absent: tenderness, CVA tenderness (R), CVA tenderness (L), muscle spasm - Neurological Exam Neurological exam: Present: alert, oriented X3, CN II-XII intact, normal gait, reflexes normal - Psychiatric Psychiatric exam: Present: normal affect, normal mood - Skin Skin exam: Present: warm, dry ED Course Vital Signs 06/25/18 06/25/18 06/25/18 12:19 17:24 17:28 Temperature 98.4 F 98.0 F 98.0 F Pulse Rate 78 78 Respiratory 16 18 18 Rate Blood Pressure 137/100 Blood Pressure 167/101 167/101 [Right] O2 Sat by Pulse 97 98 98 Oximetry ED Medical Decision Making - Lab Data Result diagrams: 06/25/18 13:31 06/25/18 13:31 - Medical Decision Making Presents to the ER today with diffuse abdominal pain. He states that he was at his friend's last night and they ate food. He said it was a green party he doesn't have anybody else was sick. He has pain such as when he had an the past with his pancreatitis. LABS N URINE N AMBULATORY TAKING PO NON TOXIC NO FEVER - Differential Diagnosis RO PANCREATITIS Critical care attestation.: If time is entered above; I have spent that time in minutes in the direct care of this critically ill patient, excluding procedure time. ED Disposition Clinical Impression: Abdominal pain, History of pancreatitis Disposition: - TO HOME OR SELFCARE Is pt being admited?: No Does the pt Need Aspirin: No Condition: Stable Instructions: Acute Nausea and Vomiting (ED), Abdominal Pain (ED) Additional Instructions: HYDRATE WELL WITH WATER MEDS ORDERED BLAND DIET BANANA RICE APPLESAUCE TOAST FOLLOW UP WITH GI MD SEE REFERRAL BELOW AVOID ALCOHOL AVOID SPICY FOOD AVOID OTHER THINGS THAT YOU KNOW UPSET YOUR STOMACH Prescriptions: Famotidine [Pepcid] 20 mg PO BID #20 tablet Ondansetron [Zofran Odt] 4 mg PO Q6H PRN #10 tab.rapdis PRN Reason: Nausea Referrals: LILLIAM BURNS MD [Staff Physician] - 3-5 Days PAKO MEI MD [Staff Physician] - 3-5 Days AAKASH HUTTON MD [Staff Physician] - 3-5 Days Time of Disposition: 16:58
[2018-06-25 13:50] LABS: Basophils # (Auto) 0.1 K/mm3 (0.0-0.1); Basophils % (Auto) 0.9 % (0.0-1.8); Eosinophils # (Auto) 0.7 K/mm3 (0.0-0.4); Eosinophils % (Auto) 8.8 % (0.0-4.3); Hematocrit 39.7 % (35.5-45.6); Hemoglobin 13.9 gm/dl (11.8-15.2); Lymphocytes # (Auto) 2.7 K/mm3 (1.2-5.4); Mean Corpuscular HGB Conc 35 % (32-34); Mean Corpuscular Hemoglobin 31 pg (28-32); Mean Corpuscular Volume 89 fl (84-94); Monocytes # (Auto) 0.5 K/mm3 (0.0-0.8); Monocytes % (Auto) 7.2 % (0.0-7.3); Platelet Count 231 K/mm3 (140-440); Red Blood Count 4.45 M/mm3 (3.65-5.03); Red Cell Distribution Width 13.1 % (13.2-15.2)
[2018-06-25 14:08] LABS: Albumin 4.8 g/dL (3.9-5); BUN/Creatinine Ratio 14; Blood Urea Nitrogen 18 mg/dL (9-20); Calcium 9.6 mg/dL (8.4-10.2); Hemolysis Index 118; Lipase 15 units/L (13-60)
[2018-06-25 14:21] LABS: Alanine Aminotransferase 33 units/L (7-56)
[2018-06-25 14:51] LABS: Bilirubin,Urine NEG (Negative); Blood,Urine NEG (Negative); Color,Urine Yellow (Yellow); Protein,Urine <15 mg/dL mg/dL (Negative); Urobilinogen,Urine < 2.0 mg/dL (<2.0)
[2018-06-25 17:29] VITALS: BP 167/101
== END 2018-06-25 17:29 | disposition home or self-care (01) ==
LOC: ED 12:03
DX: K85.90 Acute pancreatitis without necrosis or infection, unspecified (principal); M19.90 Unspecified osteoarthritis, unspecified site
CPT/HCPCS: 36415; 80053; 81001; 83690; 85025; 99283; Q0162

== ENCOUNTER 2019-02-10 11:53 | Emergency (ER) | payer OTHER ==
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
[2019-02-10 12:01] VITALS: BP 151/95
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
--- NOTE | 2019-02-10 12:46 | XRay Report ---
PROCEDURE: XR SHOULDER 2+V LT TECHNIQUE: Left shoulder radiographs, 3 views. HISTORY: left shoulder pain COMPARISONS: None currently available. FINDINGS: There is no acute fracture. There is no evidence for healing fracture. There is no acute dislocation. No significant arthrosis. There is no cortical destruction to suggest osteomyelitis. There are no suspicious osseous lesions. There are no radiopaque foreign objects. IMPRESSION: * No acute osseous findings. This document is electronically signed by Jimi Regalado MD., February 10 2019 12:44:30 PM ET
== END 2019-02-10 13:09 | disposition home or self-care (01) ==
LOC: ED 11:53
DX: M25.512 Pain in left shoulder (principal); R03.0 Elevated blood-pressure reading, without diagnosis of hypertension; M19.90 Unspecified osteoarthritis, unspecified site; V49.49XA Driver injured in collision with other motor vehicles in traffic accident, initial encounter; Y93.89 Activity, other specified; Y92.89 Other specified places as the place of occurrence of the external cause; Y99.8 Other external cause status

== ENCOUNTER 2020-07-10 11:37 | Emergency (ER) | payer OTHER ==
[2020-07-10 12:13] VITALS: BP 138/94
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
== END 2020-07-10 15:16 | disposition home or self-care (01) ==
LOC: ED 11:37
DX: M25.512 Pain in left shoulder (principal); M54.2 Cervicalgia; M19.91 Primary osteoarthritis, unspecified site; Z79.1 Long term (current) use of non-steroidal anti-inflammatories (NSAID); Z79.899 Other long term (current) drug therapy; V49.49XA Driver injured in collision with other motor vehicles in traffic accident, initial encounter; Y93.89 Activity, other specified; Y92.410 Unspecified street and highway as the place of occurrence of the external cause; Y99.8 Other external cause status

== ENCOUNTER 2020-12-09 15:15 | Emergency (ER) | payer OTHER ==
[2020-12-09] MEDS ORDERED: ACETAMINOPHEN 500 MG TAB PO ONE ×2 (16:04→19:48)
--- NOTE | 2020-12-09 16:07 | Event Note ---
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 Patient states that his current symptoms are consistent with prior diagnosis of acute pancreatitis, at which time he was hospitalized. No known sick contacts. Cannot recall date of last normal bowel movement. Fever and tachycardia noted in triage; ordered Tylenol and lactic acid per sepsis protocol. General: Awake, appropriately interactive, no acute distress. Neck: Supple. Full range of motion intact. Cardiovascular: Normal peripheral perfusion. Pulmonary: No respiratory distress. Patient is speaking normally without use of accessory muscles. Abdomen: Soft, non-distended. Diffuse tenderness to palpation most pronounced along the epigastrium/left upper quadrant. No guarding, rigidity, or rebound. Skin: No apparent rashes or lesions. Neurological: No facial asymmetry. Speech is clear. Follows commands. Patient is alert and oriented. Musculoskeletal: Moves all four extremities spontaneously with normal range of motion. Psych: Cooperative. Appropriate mood and affect.
[2020-12-09 16:52] LABS: Bacteria,Urine 1+ /HPF (Negative); Bilirubin,Urine NEG (Negative); Blood,Urine NEG (Negative); Color,Urine Yellow (Yellow); Mucus,Urine FEW /HPF; Urobilinogen,Urine < 2.0 mg/dL (<2.0)
[2020-12-09 17:01] LABS: Hematocrit 40.6 % (35.5-45.6); Mean Corpuscular HGB Conc 35 % (32-34); Mean Corpuscular Volume 89 fl (84-94); Platelet Count 216 K/mm3 (140-440); Red Blood Count 4.55 M/mm3 (3.65-5.03); Red Cell Distribution Width 13.1 % (13.2-15.2)
[2020-12-09 17:24] LABS: Alanine Aminotransferase 26 units/L (7-56); Albumin 4.8 g/dL (3.9-5); BUN/Creatinine Ratio 11; Blood Urea Nitrogen 14 mg/dL (9-20); Calcium 9.7 mg/dL (8.4-10.2); Hemolysis Index 12
[2020-12-09 17:38] LABS: Myelocytes # (Manual) 0.1 K/mm3; Total Cells Counted 100
[2020-12-09 17:43] LABS: Anisocytosis Few; Platelet Estimate Consistent w Auto
[2020-12-09] MEDS ORDERED: SODIUM CHLORIDE 0.9% 1000 ML IV SOLN IV ONE (19:26)
[2020-12-09] MEDS ORDERED: CEFEPIME/NS 2 GM/100 ML 2 GM/100 ML BAG IV ONE (19:31)
[2020-12-09] MEDS ORDERED: metroNIDAZOLE/NS 500 MG/100 ML 500 MG/100 ML BAG IV ONE (19:31)
--- NOTE | 2020-12-09 20:19 | XRay Report ---
CHEST 1 VIEW 12/09/2020 7:04 PM INDICATION / CLINICAL INFORMATION: sepsis. COMPARISON: None available. FINDINGS: SUPPORT DEVICES: None. HEART / MEDIASTINUM: No significant abnormality. LUNGS / PLEURA: No significant pulmonary or pleural abnormality. No pneumothorax. ADDITIONAL FINDINGS: No significant additional findings. IMPRESSION: 1. No acute findings. Signer Name: Yovany Scott MD Signed: 12/09/2020 8:14 PM Workstation Name: [id number]
--- NOTE | 2020-12-09 20:57 | Emergency Department Report ---
ED Abdominal Pain HPI - General Chief Complaint: Abdominal Pain Stated Complaint: ABD PAIN Time Seen by Provider: 12/09/20 19:25 Source: patient Mode of arrival: Ambulatory Limitations: No Limitations - History of Present Illness Initial Comments: This is a 45-year-old male nontoxic, well nourished in appearance, no acute signs of distress presents to the ED with c/o of nausea and vomiting and abdominal pain several days. Patient describes vomiting as food content and yellow gastric acid. Patient describes abdominal pain as cramping and aching with level of 8/10 diffuse. Patient stated developed fever and chills prior to arrival. Patient denies chest pain, short of breath, hemoptysis, blood in stool, chills, headache, stiff neck, numbness or tingling. Patient denies any diarrhea or constipation. Denies any blood in stool. Patient denies any recent travels. Patient denies any allergies. Past medical history includes pancreatitis but stated last alcoholic drink was about 2017. MD Complaint: abdominal pain -: days(s) Location: diffuse Radiation: none Migration to: no migration Severity scale (0 -10): 8 Quality: cramping, aching Consistency: constant Improves With: nothing Worsens With: nothing Associated Symptoms: nausea, vomiting, fever, chills. denies: diarrhea, constipation, dysuria, hematemesis, hematochezia, melena, hematuria, anorexia, syncope - Related Data Previous Rx's Medication Instructions Recorded Last Taken Type Famotidine [Pepcid] 20 mg PO BID #20 tablet 06/25/18 Unknown Rx Ondansetron [Zofran Odt] 4 mg PO Q6H PRN #10 tab.rapdis 06/25/18 Unknown Rx HYDROcodone/APAP 5-325 [[place] 1 each PO Q6HR PRN #10 tablet 02/10/19 Unknown Rx 5/325] Ibuprofen [Motrin 600 MG tab] 600 mg PO Q8H PRN #30 tablet 07/10/20 Unknown Rx Ciprofloxacin HCl 500 mg PO BID #14 tablet 12/09/20 Unknown Rx Ondansetron [Zofran Odt] 4 mg PO Q8HR PRN #12 tab.rapdis 12/09/20 Unknown Rx metroNIDAZOLE [Flagyl] 500 mg PO Q12HR #14 tab 12/09/20 Unknown Rx Allergies Allergy/AdvReac Type Severity Reaction Status Date / Time No Known Allergies Allergy Verified 02/10/19 12:01 ED Review of Systems ROS: Stated complaint: ABD PAIN Other details as noted in HPI Constitutional: chills, fever Eyes: denies: eye pain, eye discharge, vision change ENT: denies: ear pain, throat pain Respiratory: denies: cough, shortness of breath, wheezing Cardiovascular: denies: chest pain, palpitations Endocrine: no symptoms reported Gastrointestinal: abdominal pain, nausea, vomiting. denies: diarrhea, constipation, hematemesis, melena, hematochezia Genitourinary: denies: urgency, dysuria Musculoskeletal: denies: back pain, joint swelling, arthralgia Skin: denies: rash, lesions Neurological: denies: headache, weakness, paresthesias Psychiatric: denies: anxiety, depression Hematological/Lymphatic: denies: easy bleeding, easy bruising ED Past Medical Hx - Past Medical History Hx Hypertension: No Hx Congestive Heart Failure: No Hx Diabetes: No Hx Arthritis: Yes (Grand mother) Hx Asthma: No Hx COPD: No Additional medical history: pancreatitis - Surgical History Additional Surgical History: left foot - Social History Smoking Status: Never Smoker Substance Use Type: None - Medications Home Medications: Home Medications Medication Instructions Recorded Confirmed Last Taken Type Famotidine [Pepcid] 20 mg PO BID #20 tablet 06/25/18 Unknown Rx Ondansetron [Zofran Odt] 4 mg PO Q6H PRN #10 tab.rapdis 06/25/18 Unknown Rx HYDROcodone/APAP 5-325 [[place] 1 each PO Q6HR PRN #10 tablet 02/10/19 Unknown Rx 5/325] Ibuprofen [Motrin 600 MG tab] 600 mg PO Q8H PRN #30 tablet 07/10/20 Unknown Rx Ciprofloxacin HCl 500 mg PO BID #14 tablet 12/09/20 Unknown Rx Ondansetron [Zofran Odt] 4 mg PO Q8HR PRN #12 tab.rapdis 12/09/20 Unknown Rx metroNIDAZOLE [Flagyl] 500 mg PO Q12HR #14 tab 12/09/20 Unknown Rx ED Physical Exam - General Limitations: No Limitations General appearance: alert, in no apparent distress - Head Head exam: Present: atraumatic, normocephalic - Eye Eye exam: Present: normal appearance - ENT ENT exam: Present: normal exam, normal orophraynx - Neck Neck exam: Present: normal inspection, full ROM. Absent: tenderness, meningismus, lymphadenopathy - Respiratory Respiratory exam: Present: normal lung sounds bilaterally. Absent: respiratory distress, wheezes, rales, rhonchi, stridor, chest wall tenderness, accessory muscle use, decreased breath sounds, prolonged expiratory - Cardiovascular Cardiovascular Exam: Present: regular rate, normal rhythm, tachycardia, normal heart sounds. Absent: bradycardia, irregular rhythm, systolic murmur, diastolic murmur, rubs, gallop - GI/Abdominal GI/Abdominal exam: Present: soft, tenderness (diffuse), normal bowel sounds. Absent: distended, guarding, rebound, rigid, diminished bowel sounds - Extremities Exam Extremities exam: Present: normal inspection, full ROM - Back Exam Back exam: Present: normal inspection, full ROM. Absent: tenderness, CVA tenderness (R), CVA tenderness (L), muscle spasm, paraspinal tenderness, vertebral tenderness, rash noted - Neurological Exam Neurological exam: Present: alert, oriented X3, normal gait - Psychiatric Psychiatric exam: Present: normal affect, normal mood - Skin Skin exam: Present: warm, dry, intact, normal color. Absent: rash ED Course Vital Signs 12/09/20 12/09/20 12/09/20 15:35 19:30 23:09 Temperature 102.3 F H 100.3 F H 98.9 F Pulse Rate 119 H 113 H 79 Respiratory 16 20 17 Rate Blood Pressure 139/98 Blood Pressure 137/92 [Left] Blood Pressure 141/88 [Right] O2 Sat by Pulse 98 99 97 Oximetry - Reevaluation(s) Reevaluation #1: 12/09/20 20:57 Patient is speaking in full sentences with no signs of distress noted. ED Medical Decision Making - Lab Data Result diagrams: 12/09/20 16:51 12/09/20 16:51 Lab Results 12/09/20 12/09/20 12/09/20 Range/Units 16:19 16:51 16:51 WBC 7.0 (4.5-11.0) K/mm3 RBC 4.55 (3.65-5.03) M/mm3 Hgb 14.0 (11.8-15.2) gm/dl Hct 40.6 (35.5-45.6) % MCV 89 (84-94) fl MCH 31 (28-32) pg MCHC 35 H (32-34) % RDW 13.1 L (13.2-15.2) % Plt Count 216 (140-440) K/mm3 [place] % (Auto) [place] Add Manual Diff Complete Total Counted 100 Seg Neuts % (Manual) 76.0 H (40.0-70.0) % Lymphocytes % (Manual) 11.0 L (13.4-35.0) % Monocytes % (Manual) 10.0 H (0.0-7.3) % Eosinophils % (Manual) 2.0 (0.0-4.3) % Myelocytes % 1.0 % Promyelocytes % 0 % Nucleated RBC % Not Reportable Seg Neutrophils # Man 5.3 (1.8-7.7) K/mm3 Band Neutrophils # 0.0 K/mm3 Lymphocytes # (Manual) 0.8 L (1.2-5.4) K/mm3 Abs React Lymphs (Man) 0.0 K/mm3 Monocytes # (Manual) 0.7 (0.0-0.8) K/mm3 Eosinophils # (Manual) 0.1 (0.0-0.4) K/mm3 Basophils # (Manual) 0.0 (0.0-0.1) K/mm3 Metamyelocytes # 0.0 K/mm3 Myelocytes # 0.1 K/mm3 Promyelocytes # 0.0 K/mm3 Blast Cells # 0.0 K/mm3 WBC Morphology Not Reportable Hypersegmented Neuts Not Reportable Hyposegmented Neuts Not Reportable Hypogranular Neuts Not Reportable Smudge Cells Not Reportable Toxic Granulation Not Reportable Toxic Vacuolation Not Reportable Dohle Bodies Not Reportable Pelger-Huet Anomaly Not Reportable Bernardo Rods Not Reportable Platelet Estimate Consistent w auto Clumped Platelets Not Reportable Plt Clumps, EDTA Not Reportable Large Platelets Not Reportable Giant Platelets Not Reportable Platelet Satelliting Not Reportable Plt Morphology Comment Not Reportable RBC Morphology Not Reportable Dimorphic RBCs Not Reportable Polychromasia Not Reportable Hypochromasia Not Reportable Poikilocytosis Not Reportable Anisocytosis Few Microcytosis Not Reportable Macrocytosis Not Reportable Spherocytes Not Reportable Pappenheimer Bodies Not Reportable Sickle Cells Not Reportable Target Cells Not Reportable Tear Drop Cells Not Reportable Ovalocytes Not Reportable Helmet Cells Not Reportable Franco-Loma Bodies Not Reportable [place] Rings Not Reportable Nancy Cells Not Reportable Bite Cells Not Reportable Crenated Cell Not Reportable Elliptocytes Not Reportable Acanthocytes (Spur) Not Reportable Rouleaux Not Reportable Hemoglobin C Crystals Not Reportable Schistocytes Not Reportable Malaria parasites Not Reportable Christopher Bodies Not Reportable Hem Pathologist Commnt No Sodium 135 L (137-145) mmol/L Potassium 4.1 (3.6-5.0) mmol/L Chloride 99.7 (98-107) mmol/L Carbon Dioxide 27 (22-30) mmol/L Anion Gap 12 mmol/L BUN 14 (9-20) mg/dL Creatinine 1.3 (0.8-1.3) mg/dL Estimated GFR > 60 ml/min BUN/Creatinine Ratio 11 % Glucose 102 H (75-100) mg/dL Lactic Acid (0.7-2.0) mmol/L Calcium 9.7 (8.4-10.2) mg/dL Magnesium (1.7-2.3) mg/dL Total Bilirubin 0.50 (0.1-1.2) mg/dL AST 25 (5-40) units/L ALT 26 (7-56) units/L Alkaline Phosphatase 161 H (35-129) units/L Total Protein 8.0 (6.3-8.2) g/dL Albumin 4.8 (3.9-5) g/dL Albumin/Globulin Ratio 1.5 % Lipase (13-60) units/L Urine Color Yellow (Yellow) Urine Turbidity Clear (Clear) Urine pH 5.0 (5.0-7.0) Ur Specific [place] 1.025 (1.003-1.030) Urine Protein 30 mg/dl (Negative) mg/dL Urine Glucose (UA) Neg (Negative) mg/dL Urine Ketones Neg (Negative) mg/dL Urine Blood Neg (Negative) Urine Nitrite Neg (Negative) Urine Bilirubin Neg (Negative) Urine Urobilinogen < 2.0 (<2.0) mg/dL Ur Leukocyte Esterase Tr (Negative) Urine WBC (Auto) 3.0 (0.0-6.0) /HPF Urine RBC (Auto) 4.0 (0.0-6.0) /HPF U Epithel Cells (Auto) 1.0 (0-13.0) /HPF Urine Bacteria (Auto) 1+ (Negative) /HPF Urine Mucus Few /HPF 12/09/20 12/09/20 12/09/20 Range/Units 16:51 16:51 19:56 WBC (4.5-11.0) K/mm3 RBC (3.65-5.03) M/mm3 Hgb (11.8-15.2) gm/dl Hct (35.5-45.6) % MCV (84-94) fl MCH (28-32) pg MCHC (32-34) % RDW (13.2-15.2) % Plt Count (140-440) K/mm3 [place] % (Auto) Add Manual Diff Total Counted Seg Neuts % (Manual) (40.0-70.0) % Lymphocytes % (Manual) (13.4-35.0) % Monocytes % (Manual) (0.0-7.3) % Eosinophils % (Manual) (0.0-4.3) % Myelocytes % % Promyelocytes % % Nucleated RBC % Seg Neutrophils # Man (1.8-7.7) K/mm3 Band Neutrophils # K/mm3 Lymphocytes # (Manual) (1.2-5.4) K/mm3 Abs React Lymphs (Man) K/mm3 Monocytes # (Manual) (0.0-0.8) K/mm3 Eosinophils # (Manual) (0.0-0.4) K/mm3 Basophils # (Manual) (0.0-0.1) K/mm3 Metamyelocytes # K/mm3 Myelocytes # K/mm3 Promyelocytes # K/mm3 Blast Cells # K/mm3 WBC Morphology Hypersegmented Neuts Hyposegmented Neuts Hypogranular Neuts Smudge Cells Toxic Granulation Toxic Vacuolation Dohle Bodies Pelger-Huet Anomaly Bernardo Rods Platelet Estimate Clumped Platelets Plt Clumps, EDTA Large Platelets Giant Platelets Platelet Satelliting Plt Morphology Comment RBC Morphology Dimorphic RBCs Polychromasia Hypochromasia Poikilocytosis Anisocytosis Microcytosis Macrocytosis Spherocytes Pappenheimer Bodies Sickle Cells Target Cells Tear Drop Cells Ovalocytes Helmet Cells Franco-Loma Bodies [place] Rings Nancy Cells Bite Cells Crenated Cell Elliptocytes Acanthocytes (Spur) Rouleaux Hemoglobin C Crystals Schistocytes Malaria parasites Christopher Bodies Hem Pathologist Commnt Sodium (137-145) mmol/L Potassium (3.6-5.0) mmol/L Chloride (98-107) mmol/L Carbon Dioxide (22-30) mmol/L Anion Gap mmol/L BUN (9-20) mg/dL Creatinine (0.8-1.3) mg/dL Estimated GFR ml/min BUN/Creatinine Ratio % Glucose (75-100) mg/dL Lactic Acid 1.10 1.40 (0.7-2.0) mmol/L Calcium (8.4-10.2) mg/dL Magnesium 2.10 (1.7-2.3) mg/dL Total Bilirubin (0.1-1.2) mg/dL AST (5-40) units/L ALT (7-56) units/L Alkaline Phosphatase (35-129) units/L Total Protein (6.3-8.2) g/dL Albumin (3.9-5) g/dL Albumin/Globulin Ratio % Lipase 22 (13-60) units/L Urine Color (Yellow) Urine Turbidity (Clear) Urine pH (5.0-7.0) Ur Specific [place] (1.003-1.030) Urine Protein (Negative) mg/dL Urine Glucose (UA) (Negative) mg/dL Urine Ketones (Negative) mg/dL Urine Blood (Negative) Urine Nitrite (Negative) Urine Bilirubin (Negative) Urine Urobilinogen (<2.0) mg/dL Ur Leukocyte Esterase (Negative) Urine WBC (Auto) (0.0-6.0) /HPF Urine RBC (Auto) (0.0-6.0) /HPF U Epithel Cells (Auto) (0-13.0) /HPF Urine Bacteria (Auto) (Negative) /HPF Urine Mucus /HPF - Radiology Data [facility] [address] [place] [address] Cat Scan Report Signed Patient: MARILU RUIZ MR#: [id number] : 1975 Acct:[id number] Age/Sex: 45 / M ADM Date: 12/09/20 Loc: ED Attending Dr: Ordering Physician: SEBASTIEN SHAH NP Date of Service: 12/09/20 Procedure(s): CT abdomen pelvis w con Accession Number(s): [id number] cc: SEBASTIEN SHAH NP CT abdomen pelvis w con INDICATION / CLINICAL INFORMATION: abd pain w/ n/v. TECHNIQUE: All CT scans at this location are performed using CT dose reduction for ALARA by means of automated exposure control. COMPARISON: None available. FINDINGS: No free fluid is seen in the abdomen. Dense calcification is seen in the pancreas with segmental pancreatic duct dilatation. These findings are consistent with chronic pancreatitis. No peripancreatic inflammat ory change or fluid collection is seen. The liver, spleen, kidneys, adrenal glands and great vessels are normal. No enlarged mesenteric or retroperitoneal lymph nodes are seen. In the pelvis, no free fluid is seen. No enlarged lymph nodes are identified. The bladder and what is believed to be appendix are normal. No significant skeletal abnormality is seen. IMPRESSION: Dense calcification in the pancreas with significant segmental pancreatic duct dilatation consistent with chronic pancreatitis. No acute findings are identified. Signer Name: Sebastien Wilson MD FACR Signed: 12/09/2020 9:54 PM Work station Name: [id number] Transcribed By: MS Dictated By: Sebastien Wilson MD Electronically Authenticated By: Sebastien Wilson MD Signed Date/Time: 12/09/202153 DD/ 50 TD/TT: [facility] [address] [place] [address] XRay Report Signed Patient: MARILU RUIZ MR#: [id number] : 1975 Acct:[id number] Age/Sex: 45 / M ADM Date: 12/09/20 Loc: ED Attending Dr: Ordering Physician: SEBASTIEN SHAH NP Date of Service: 12/09/20 Procedure(s): XR chest 1V ap Accession Number(s): [id number] cc: SEBASTIEN SHAH NP Fluoro Time In Minutes: CHEST 1 VIEW 12/09/2020 7:04 PM INDICATION / CLINICAL INFORMATION: sepsis. COMPARISON: None available. FINDINGS: SUPPORT DEVICES: None. HEART / MEDIASTINUM: No significant abnormality. LUNGS / PLEURA: No significant pulmonary or pleural abnormality. No pneumothorax. ADDITIONAL FINDINGS: No significant additional findings. IMPRESSION: 1. No acute findings. Signer Name: Yovany Scott MD Signed: 12/09/2020 8:14 PM Workstation Name: [id number] Transcribed By: TL Dictated By: Yovany Scott MD Electronically Authenticated By: Yovany Scott MD Signed Date/Time: 12/09/202013 DD/ 13 TD/TT: - Medical Decision Making This is a 45-year-old male that presents with chronic pancreatitis with nausea vomiting. Patient is stable and was examined by me. Negative signs of symptoms of appendicitis. Labs obtained. UA obtained. No white count or elevated lactic acid. Patient received sepsis work-up with IV antibiotics. Patient be discharged with Cipro and Flagyl empirically as well. CT of abdomen obtained and dictated by the radiologist. Patient is notified of the report with no questions noted by the patient. Vital signs are stable prior to discharge. Patient received medical treatment in the ED which patient stated symptoms has resovled and subsided. Was instructed note to operate any machinery due to possible drowsiness and stated someone will drive the patient home. A by mouth challenge has been obtained and patient tolerated well with no nausea vomiting. Patient was also instructed to Follow-up with a primary care and feather shaper doctor in 3-5 days or if symptoms worsen and continue return to emergency room as soon as possible. At time of discharge, the patient does not seem toxic or ill in appearance. No acute signs of distress noted. Patient agrees to discharge treatment plan of care. No further questions noted by the patient. Critical care attestation.: If time is entered above; I have spent that time in minutes in the direct care of this critically ill patient, excluding procedure time. ED Disposition Clinical Impression: Chronic pancreatitis Qualifiers: Pancreatitis type: unspecified pancreatitis type Qualified Code(s): K86.1 - Other chronic pancreatitis Abdominal pain Qualifiers: Abdominal location: generalized Qualified Code(s): R10.84 - Generalized abdo benjamin pain Nausea & vomiting Qualifiers: Vomiting type: unspecified Vomiting Intractability: non-intractable Qualified Code(s): R11.2 - Nausea with vomiting, unspecified Disposition: DC-01 TO HOME OR SELFCARE Is pt being admited?: No Does the pt Need Aspirin: No Condition: Stable Instructions: Chronic Pancreatitis, Nausea and Vomiting, Adult Additional Instructions: Follow-up with a primary care and feather shaper doctor in 3-5 days or if symptoms worsen and continue return to emergency room as soon as possible. Prescriptions: Ciprofloxacin HCl 500 mg PO BID #14 tablet metroNIDAZOLE [Flagyl] 500 mg PO Q12HR #14 tab Ondansetron [Zofran Odt] 4 mg PO Q8HR PRN #12 tab.rapdis PRN Reason: Nausea Referrals: PRIMARY CAREMD [Primary Care Provider] - 3-5 Days GURPREET RUIZ MD [Staff Physician] - 3-5 Days [facility] [Provider Group] - 3-5 Days Forms: Work/School Release Form(ED) Time of Disposition: 22:59
--- NOTE | 2020-12-09 21:59 | Cat Scan Report ---
CT abdomen pelvis w con INDICATION / CLINICAL INFORMATION: abd pain w/ n/v. TECHNIQUE: All CT scans at this location are performed using CT dose reduction for ALARA by means of automated e xposure control. COMPARISON: None available. FINDINGS: No free fluid is seen in the abdomen. Dense calcification is seen in the pancreas with segmental panc reatic duct dilatation. These findings are consistent with chronic pancreatitis. No peripancreatic in flammatory change or fluid collection is seen. The liver, spleen, kidneys, adrenal glands and great v essels are normal. No enlarged mesenteric or retroperitoneal lymph nodes are seen. In the pelvis, no free fluid is seen. No enlarged lymph nodes are identified. The bladder and what is believed to be appendix are normal. No significant skeletal abnormality is seen. IMPRESSION: Dense calcification in the pancreas with significant segmental pancreatic duct dilatation consistent with chronic pancreatitis. No acute findings are identified. Signer Name: Sebastien Wilson MD FACR Signed: 12/09/2020 9:54 PM Workstation Name: [id number]
[2020-12-09 23:10] VITALS: BP 141/88
== END 2020-12-10 00:10 | disposition home or self-care (01) ==
LOC: ED 15:15
DX: K86.1 Other chronic pancreatitis (principal); R11.2 Nausea with vomiting, unspecified; R10.9 Unspecified abdominal pain; Z79.899 Other long term (current) drug therapy; Z98.890 Other specified postprocedural states
CPT/HCPCS: 36415; 71045; 74177; 80053; 81001; 82140; 83690; 83735; 85007; 85025; 87040; 96365; 96368; 99285; J0692; J7030; Q9967; 96367

== ENCOUNTER 2022-03-10 22:47 | Emergency (ER) | payer OTHER ==
[2022-03-11 07:24] LABS: Hematocrit 39.5 % (35.5-45.6); Hemoglobin 14.1 gm/dl (11.8-15.2); Mean Corpuscular HGB Conc 36 % (32-34); Mean Corpuscular Volume 88 fl (84-94); Platelet Count 186 K/mm3 (140-440); Red Blood Count 4.48 M/mm3 (3.65-5.03); Red Cell Distribution Width 13.4 % (13.2-15.2)
[2022-03-11 07:49] LABS: Alanine Aminotransferase 18 units/L (7-56); BUN/Creatinine Ratio 8; Blood Urea Nitrogen 8 mg/dL (9-20); Calcium 9.7 mg/dL (8.4-10.2); Hemolysis Index 5
[2022-03-11 07:57] LABS: Platelet Estimate Consistent w Auto; RBC Morphology Normal; Total Cells Counted 100
[2022-03-11 09:10] LABS: RBC,Urine < 1.0 /HPF (0.0-6.0)
[2022-03-11 10:15] LABS: Bilirubin,Urine Negative (Negative); Blood,Urine Negative (Negative); Color,Urine Yellow (Yellow)
[2022-03-11 10:16] LABS: Protein,Urine <15 mg/dL mg/dL (Negative); Urobilinogen,Urine < 2.0 mg/dL (<2.0)
--- NOTE | 2022-03-11 10:20 | Emergency Department Report ---
ED Abdominal Pain HPI - General Chief Complaint: Abdominal Pain Stated Complaint: PAIN ON LFT SIDE AB Time Seen by Provider: 03/11/22 08:11 Source: patient Mode of arrival: Ambulatory Limitations: No Limitations - History of Present Illness Initial Comments: 46 YO COMES TO ER WITH N/V/D HAS A/C PANCREATITIS VSS NO FEVER MILD LLQ TENDERNESS NO ACTIVE VOMITING IN ER MD Complaint: abdominal pain -: Gradual, hour(s) Location: diffuse Migration to: no migration Severity: moderate Severity scale (0 -10): 5 Quality: cramping Consistency: constant Improves With: nothing Worsens With: nothing Associated Symptoms: denies other symptoms, nausea, vomiting, diarrhea. denies: fever, chills, constipation, dysuria, hematemesis, hematochezia, melena, hematuria, anorexia, syncope - Related Data Previous Rx's Medication Instructions Recorded Last Taken Type Famotidine [Pepcid] 20 mg PO BID #20 tablet 06/25/18 Unknown Rx Ondansetron [Zofran Odt] 4 mg PO Q6H PRN #10 tab.rapdis 06/25/18 Unknown Rx HYDROcodone/APAP 5-325 [[place] 1 each PO Q6HR PRN #10 tablet 02/10/19 Unknown Rx 5/325] Ibuprofen [Motrin 600 MG tab] 600 mg PO Q8H PRN #30 tablet 07/10/20 Unknown Rx Ciprofloxacin HCl 500 mg PO BID #14 tablet 12/09/20 Unknown Rx Ondansetron [Zofran Odt] 4 mg PO Q8HR PRN #12 tab.rapdis 12/09/20 Unknown Rx metroNIDAZOLE [Flagyl] 500 mg PO Q12HR #14 tab 12/09/20 Unknown Rx Allergies Allergy/AdvReac Type Severity Reaction Status Date / Time No Known Allergies Allergy Verified 02/10/19 12:01 ED Review of Systems ROS: Stated complaint: PAIN ON LFT SIDE AB Other details as noted in HPI Comment: All other systems reviewed and negative ED Past Medical Hx - Past Medical History Previous Medical History?: Yes Hx Hypertension: No Hx Congestive Heart Failure: No Hx Diabetes: No Hx Arthritis: Yes (Grand mother) Hx Asthma: No Hx COPD: No Additional medical history: pancreatitis - Surgical History Past Surgical History?: Yes Additional Surgical History: left foot - Family History Family history: no significant - Social History Smoking Status: Never Smoker Substance Use Type: None - Medications Home Medications: Home Medications Medication Instructions Recorded Confirmed Last Taken Type Famotidine [Pepcid] 20 mg PO BID #20 tablet 06/25/18 Unknown Rx Ondansetron [Zofran Odt] 4 mg PO Q6H PRN #10 tab.rapdis 06/25/18 Unknown Rx HYDROcodone/APAP 5-325 [[place] 1 each PO Q6HR PRN #10 tablet 02/10/19 Unknown Rx 5/325] Ibuprofen [Motrin 600 MG tab] 600 mg PO Q8H PRN #30 tablet 07/10/20 Unknown Rx Ciprofloxacin HCl 500 mg PO BID #14 tablet 12/09/20 Unknown Rx Ondansetron [Zofran Odt] 4 mg PO Q8HR PRN #12 tab.rapdis 12/09/20 Unknown Rx metroNIDAZOLE [Flagyl] 500 mg PO Q12HR #14 tab 12/09/20 Unknown Rx ED Physical Exam - General Limitations: No Limitations General appearance: alert, in no apparent distress - Head Head exam: Present: atraumatic, normocephalic - Eye Eye exam: Present: normal appearance - ENT ENT exam: Present: mucous membranes moist - Neck Neck exam: Present: normal inspection - Respiratory Respiratory exam: Present: normal lung sounds bilaterally. Absent: respiratory distress - Cardiovascular Cardiovascular Exam: Present: regular rate, normal rhythm. Absent: systolic murmur, diastolic murmur, rubs, gallop - GI/Abdominal GI/Abdominal exam: Present: soft, normal bowel sounds - Rectal Rectal exam: Present: deferred - Extremities Exam Extremities exam: Present: normal inspection - Back Exam Back exam: Present: normal inspection - Neurological Exam Neurological exam: Present: alert, oriented X3 - Psychiatric Psychiatric exam: Present: normal affect, normal mood - Skin Skin exam: Present: warm, dry, intact, normal color. Absent: rash ED Course Vital Signs 03/11/22 06:04 Temperature 98.0 F Pulse Rate 62 Respiratory 18 Rate Blood Pressure 172/115 O2 Sat by Pulse 100 Oximetry ED Medical Decision Making - Lab Data Result diagrams: 03/11/22 07:07 03/11/22 07:07 - Radiology Data Radiology results: report reviewed, image reviewed SEE REPORT - Medical Decision Making Labs 03/11/22 03/11/22 03/11/22 07:07 07:07 Unknown WBC 5.0 RBC 4.48 Hgb 14.1 Hct 39.5 MCV 88 MCH 31 MCHC 36 H RDW 13.4 Plt Count 186 Add Manual Diff Complete Total Counted 100 Seg Neutrophils % Snow Shoveler Seg Neuts % (Manual) 28.0 L Band Neutrophils % 0 Lymphocytes % (Manual) 60.0 H Reactive Lymphs % (Man) 0 Monocytes % (Manual) 6.0 Eosinophils % (Manual) 5.0 H Basophils % (Manual) 1.0 Metamyelocytes % 0 Myelocytes % 0 Promyelocytes % 0 Blast Cells % 0 Nucleated RBC % Not Reportable Seg Neutrophils # Man 1.4 L Band Neutrophils # 0.0 Lymphocytes # (Manual) 3.0 Abs React Lymphs (Man) 0.0 Monocytes # (Manual) 0.3 Eosinophils # (Manual) 0.3 Basophils # (Manual) 0.1 Metamyelocytes # 0.0 Myelocytes # 0.0 Promyelocytes # 0.0 Blast Cells # 0.0 WBC Morphology Not Reportable Hypersegmented Neuts Not Reportable Hyposegmented Neuts Not Reportable Hypogranular Neuts Not Reportable Smudge Cells Not Reportable Toxic Granulation Not Reportable Toxic Vacuolation Not Reportable Dohle Bodies Not Reportable Pelger-Huet Anomaly Not Reportable Bernardo Rods Not Reportable Platelet Estimate Consistent w auto Clumped Platelets Not Reportable Plt Clumps, EDTA Not Reportable Large Platelets Not Reportable Giant Platelets Not Reportable Platelet Satelliting Not Reportable Plt Morphology Comment Not Reportable RBC Morphology Normal Dimorphic RBCs Not Reportable Polychromasia Not Reportable Hypochromasia Not Reportable Poikilocytosis Not Reportable Anisocytosis Not Reportable Microcytosis Not Reportable Macrocytosis Not Reportable Spherocytes Not Reportable Pappenheimer Bodies Not Reportable Sickle Cells Not Reportable Target Cells Not Reportable Tear Drop Cells Not Reportable Ovalocytes Not Reportable Helmet Cells Not Reportable Franco-[place] Bodies Not Reportable [place] Rings Not Reportable Nancy Cells Not Reportable Bite Cells Not Reportable Crenated Cell Not Reportable Elliptocytes Not Reportable Acanthocytes (Spur) Not Reportable Rouleaux Not Reportable Hemoglobin C Crystals Not Reportable Schistocytes Not Reportable Malaria parasites Not Reportable Christopher Bodies Not Reportable Hem Pathologist Commnt No Sodium 138 Potassium 4.2 Chloride 100.4 Carbon Dioxide 26 Anion Gap 16 BUN 8 L Creatinine 1.0 Estimated GFR > 60 BUN/Creatinine Ratio 8 Glucose 96 Calcium 9.7 Total Bilirubin 0.40 AST 20 ALT 18 Alkaline Phosphatase 139 H Total Protein 7.9 Albumin 5.0 Albumin/Globulin Ratio 1.7 Lipase 15 Urine Color Yellow Urine Turbidity Clear Urine pH 5.0 Ur Specific [place] 1.020 Urine Protein <15 mg/dl Urine Glucose (UA) Negative Urine Ketones Negative Urine Blood Negative Urine Nitrite Negative Ur Reducing Substances Not Reportable Urine Bilirubin Negative Urine Ictotest Not Reportable Urine Urobilinogen < 2.0 Ur Leukocyte Esterase Trace Urine WBC (Auto) 2.0 Urine RBC (Auto) < 1.0 Vital Signs 03/11/22 06:04 Temperature 98.0 F Pulse Rate 62 Respiratory 18 Rate Blood Pressure 172/115 O2 Sat by Pulse 100 Oximetry LABS NOTED UA NOTED VSS BP DOWN TRENDING P MEDICATIONS CT NOTED A/C PANCREATITIS NO INDICATION FOR ADMIT PAIN IMPROVED DURING TIME IN ER TOLERATING PO DC HOME WITH DC PLAN OF CARE INCLUDING DIET, MEDS, ACTIVITY AND FOLLOW UP VERBALIZES UNDERSTANDING OF PLAN OF CARE INCLUDING NEED TO SEE GI/PCP AND AVOID ETOH DIET INSTRUCTIONS GIVEN - Differential Diagnosis RO PANCREATITIS Critical care attestation.: If time is entered above; I have spent that time in minutes in the direct care of this critically ill patient, excluding procedure time. ED Disposition Clinical Impression: Chronic pancreatitis Qualifiers: Pancreatitis type: other Qualified Code(s): K86.1 - Other chronic pancreatitis Disposition: HOME / SELF CARE / HOMELESS Is pt being admited?: No Does the pt Need Aspirin: No Condition: Stable Instructions: Chronic Pancreatitis, Pancreatitis Eating Plan Additional Instructions: DIET - SEE ATTACHED AVOID ALCOHOL FOLLOW UP WITH PCP AND GI CHRIS REFERRALS BELOW STAY WELL HYDRATED WITH WATER Referrals: RINKU ENAMORADO MD [Primary Care Provider] - 3-5 Days GURPREET RUIZ MD [Staff Physician] - 3-5 Days LILLIAM BURNS MD [Staff Physician] - 3-5 Days Forms: Work/School Release Form(ED) Time of Disposition: 15:24
[2022-03-11] MEDS ORDERED: SODIUM CHLORIDE 0.9% 1000 ML 1,000 ML IV ONE (11:24)
[2022-03-11] MEDS ORDERED: LIDOCAINE VISCOUS 2% 15 ML ORAL LIQD PO ONE (11:24)
[2022-03-11] MEDS ORDERED: PANTOPRAZOLE 40 MG INJ IV ONE (11:24)
[2022-03-11] MEDS ORDERED: ALUM-MAG HYDROXIDE-SIMETHICONE 200-200-20MG/5ML ORAL LIQD 30 ML PO ONE (11:24)
--- NOTE | 2022-03-11 15:00 | Cat Scan Report ---
CT ABDOMEN AND PELVIS WITH CONTRAST INDICATION / CLINICAL INFORMATION: Left lower abdominal pain with nausea, vomiting and diarrhea. TECHNIQUE: Axial CT images were obtained through the abdomen and pelvis after Omnipaque 300, 100 cc I V contrast. All CT scans at this location are performed using CT dose reduction for ALARA by means o f automated exposure control. COMPARISON: 12/09/2020. FINDINGS: LOWER CHEST: No significant abnormality. LIVER: No significant abnormality. GALLBLADDER: No significant abnormality. BILE DUCTS: No significant abnormality. PANCREAS: Changes of chronic pancreatitis with calcifications and a large ductal stone at the level t he pancreatic head measuring 1.9 cm. There is more distal ductal dilatation and ductal atrophy. SPLEEN: No significant abnormality. ADRENALS: No significant abnormality. RIGHT KIDNEY / URETER: No significant abnormality. LEFT KIDNEY / URETER: No significant abnormality. STOMACH / SMALL BOWEL: No significant abnormality. COLON: No significant abnormality. APPENDIX: Nonvisualized. PERITONEUM: No free fluid. No free air. No fluid collection. LYMPH NODES: No significant adenopathy. VASCULAR STRUCTURES: No significant abnormality. URINARY BLADDER: No significant abnormality. REPRODUCTIVE ORGANS: No significant abnormality. ADDITIONAL FINDINGS: Small fat-containing umbilical hernia. SKELETAL SYSTEM: No significant abnormality. IMPRESSION: 1. Changes of chronic pancreatitis again noted including pancreatic calcification, ductal stone, duct al dilatation and underlying atrophy. 2. No acute inflammatory process. Signer Name: Jose Larry MD Signed: 03/11/2022 2:55 PM Workstation Name: [employer]
[2022-03-11 15:56] VITALS: BP 156/100
== END 2022-03-11 15:56 | disposition home or self-care (01) ==
LOC: ED 22:47
DX: K86.1 Other chronic pancreatitis (principal)
CPT/HCPCS: 36415; 74177; 80053; 81001; 83690; 85007; 85025; 96361; 96374; 99284; C9113; J7030; Q9967